=== PATIENT | male | born 1955 | race Two or more races ===

== ENCOUNTER 2017-11-04 07:42 | Inpatient (IN) | payer OTHER ==
[~2017-11-04] VITALS: Ht 154.9 cm; Wt 106.7 kg
[~2017-11-04 07:42] MED LIST: ASPI-496 PO; LATA2.5D3 EACHEYE; OXYC-307 PO; SERT100T5 PO; SIMV40TA3 PO; TRAZ50TA18 PO
[2017-11-04] MEDS ORDERED: LACTATED RINGERS 1,000 ML IV SCH (07:59)
[2017-11-04] MEDS ORDERED: OxyconTIN ER 20 MG TAB.ER PO ONE (11:00)
[2017-11-04] MEDS ORDERED: ACETAMINOPHEN 500 MG TABLET PO ONE (11:00)
[2017-11-04] MEDS ORDERED: GABAPENTIN 300 MG CAPSULE PO ONE (11:00)
[2017-11-04] MEDS ORDERED: MIDAZOLAM 1 MG/ML, 2ML ONE (11:02)
[2017-11-04] MEDS ORDERED: FENTANYL PF 250 MCG/5ML ONE ×3 (11:03→16:28)
[2017-11-04] MEDS ORDERED: BUPIVACAINE 0.25% ONE (11:22)
[2017-11-04] MEDS ORDERED: EPINEPHRINE 1 MG/ML, 1ML ONE (11:22)
[2017-11-04] MEDS ORDERED: PROPOFOL 10 MG/ML, 20ML ONE (11:27)
[2017-11-04] MEDS ORDERED: ONDANSETRON 2MG/ML, 2ML ONE (11:27)
[2017-11-04] MEDS ORDERED: PHENYLEPHRINE 10 MG/ML ONE (11:27)
[2017-11-04] MEDS ORDERED: DEXAMETHASONE 4 MG/ML, 1ML ONE (11:27)
[2017-11-04] MEDS ORDERED: CEFOTETAN 2 GM ONE (11:27)
[2017-11-04] MEDS ORDERED: ROCURONIUM 10 MG/ML,10ML ONE (11:27)
[2017-11-04] MEDS ORDERED: EPHEDRINE 50 MG/ML, 1ML ONE (11:27)
[2017-11-04] MEDS ORDERED: MEPERIDINE/PF 25MG/0.5ML IVPush PRN (12:30)
[2017-11-04] MEDS ORDERED: LABETALOL 5MG/ML, 20ML IV PRN (12:30)
[2017-11-04] MEDS ORDERED: PROMETHAZINE 25 MG/ML, 1ML IV PRN (12:30)
[2017-11-04] MEDS ORDERED: HALOPERIDOL 5 MG/ML IV PRN (12:30)
[2017-11-04] MEDS ORDERED: hydrALAzine 20 MG/ML, 1ML IV PRN (12:30)
[2017-11-04] MEDS ORDERED: ALBUTEROL SULFATE 2.5 MG/3 ML NPPB PRN (12:30)
[2017-11-04] MEDS ORDERED: OXYcodone 5 MG/5 ML ORAL.SOL UDC PO PRN (12:30)
[2017-11-04] MEDS ORDERED: ACETAMINOPHEN 325 MG TABLET PO PRN ×2 (12:30→22:30)
[2017-11-04] MEDS ORDERED: LORazepam 2 MG/ML, 1ML IVPush PRN (12:30)
[2017-11-04] MEDS ORDERED: SUGAMMADEX 200 MG/2 ML IVPush ONE ×2 (17:15→17:30)
[2017-11-04] MEDS ORDERED: OXYcodone 5 MG/5 ML ORAL.SOL UDC ONE (17:56)
[2017-11-04] MEDS ORDERED: FENTANYL PF 100 MCG/2ML ONE (17:56)
[2017-11-04] MEDS: FENTANYL PF 100 MCG/2ML IV PRN ×3 (18:02→18:36)
[2017-11-04] MEDS ORDERED: HYDROmorphone 2 MG/ML, 1ML ONE (18:14)
[2017-11-04] MEDS: HYDROmorphone 1 MG/ML, 1ML IV PRN ×4 (18:16→19:00)
[2017-11-04] MEDS ORDERED: MEPERIDINE/PF 50 MG/ML ONE (19:05)
[2017-11-04] MEDS: LATANOPROST OPHTH 0.005%, 2.5ML EACHEYE SCH (21:00)
[2017-11-04] MEDS: SIMVASTATIN 40 MG TABLET PO SCH (21:00)
[2017-11-04] MEDS: TRAZODONE 100MG TABLET PO SCH (21:00)
[2017-11-04] MEDS ORDERED: morphine SULFATE 10 MG/ML, 1ML IV PRN (22:30)
[2017-11-04] MEDS ORDERED: DIPHENHYDRAMINE 50 MG/ML, 1ML IV PRN (22:30)
[2017-11-04] MEDS ORDERED: KETOROLAC 30 MG/1 ML IV PRN (22:30)
[2017-11-04] MEDS ORDERED: ACETAMINOPHEN 650 MG SUPP PR PRN (22:30)
[2017-11-04] MEDS ORDERED: DIPHENHYDRAMINE 25 MG CAPSULE PO PRN (22:30)
[2017-11-04] MEDS ORDERED: ONDANSETRON 2MG/ML, 2ML IV PRN (22:30)
[2017-11-04] MEDS ORDERED: LORazepam 1MG TABLET PO PRN (23:00)
[2017-11-04] MEDS ORDERED: LORazepam 2 MG/ML, 1ML IV PRN (23:00)
[2017-11-04] MEDS: CEFOTETAN PMX 2GM/50ML 50 ML IVPB SCH (23:54)
[2017-11-05 00:58] VITALS: BP 114/71
[2017-11-05] MEDS ORDERED: OMEPRAZOLE 20 MG CAPSULE.DR ONE (01:15)
[2017-11-05] MEDS ORDERED: OMEPRAZOLE 20 MG CAPSULE.DR PO ONE (01:30)
[2017-11-05] MEDS: LACTATED RINGERS 1,000 ML IV SCH ×3 (03:40→22:58)
[2017-11-05 04:18] VITALS: BP 126/74
[2017-11-05 06:01] LABS: MEAN CORPUSCULAR HEMOGLOBIN 30.3 pg (27.5-34.5); MEAN CORPUSCULAR VOLUME 89.2 fL (81-97); MEAN PLATELET VOLUME 7.2 fL (7.4-10.4); PLATELET COUNT 196 x10^3/uL (130-400); RED BLOOD COUNT 4.67 x10^6/uL (4.38-5.82); RED CELL DISTRIBUTION WIDTH 15.3 % (9.4-14.8)
[2017-11-05 06:10] LABS: ALBUMIN 2.9 g/dL (3.4-5.0); ANION GAP 6 mmol/L (5-15); CALCIUM 7.7 mg/dL (8.5-10.1); CHLORIDE 105 mmol/L (98-107); CREATININE 1.48 mg/dL (0.7-1.3)
[2017-11-05 06:32] LABS: BASOPHILS # (AUTO) 0.02 x10^3/uL (0-0.1); BASOPHILS % (AUTO) 0 % (0-1); EOSINOPHILS % (AUTO) 0 % (1-7); LYMPHOCYTES # (AUTO) 0.95 x10^3/uL (1-3.4); LYMPHOCYTES % (AUTO) 6 % (22-44); MD SCAN; MONOCYTES # (AUTO) 1.79 x10^3/uL (0.2-0.8); MONOCYTES % (AUTO) 12 % (2-9); NEUTROPHILS # (AUTO) 12.92 x10^3/uL (1.8-6.8); NEUTROPHILS % (AUTO) 82 % (42-75)
[2017-11-05 07:21] VITALS: BP 130/83
[2017-11-05] MEDS: ASPIRIN 81 MG TABLET EC PO SCH (07:39)
[2017-11-05] MEDS ORDERED: LACTATED RINGERS 1,000 ML IVBOLUS ONE (08:00)
[2017-11-05] MEDS: SERTRALINE 100MG TABLET PO SCH (08:46)
[2017-11-05] MEDS: ENOXAPARIN 40 MG/0.4 ML SQ SCH (08:46)
[2017-11-05] MEDS: CALCIUM CARBONATE 500 MG TAB.CHEW PO PRN (08:46)
[2017-11-05] MEDS: OMEPRAZOLE 20 MG CAPSULE.DR PO SCH ×2 (08:46→20:35)
[2017-11-05] MEDS: CEFOTETAN PMX 2GM/50ML 50 ML IVPB SCH (11:07)
[2017-11-05 14:15] VITALS: BP 122/84
[2017-11-05 20:30] VITALS: BP 125/78
[2017-11-05] MEDS: SIMVASTATIN 40 MG TABLET PO SCH (20:35)
[2017-11-05] MEDS: TRAZODONE 100MG TABLET PO SCH (20:35)
[2017-11-05] MEDS: LATANOPROST OPHTH 0.005%, 2.5ML EACHEYE SCH (22:57)
[2017-11-06 00:45] VITALS: BP 131/84
[2017-11-06] MEDS: OXYcodone/APAP 10/325MG TABLET PO PRN ×5 (01:45→20:02)
[2017-11-06] MEDS: ASPIRIN 81 MG TABLET EC PO SCH (06:16)
[2017-11-06 07:03] LABS: MEAN CORPUSCULAR HEMOGLOBIN 30.8 pg (27.5-34.5); MEAN CORPUSCULAR HGB CONC 34.1 g/dL (33.2-36.2); MEAN CORPUSCULAR VOLUME 90.1 fL (81-97); MEAN PLATELET VOLUME 7.5 fL (7.4-10.4); PLATELET COUNT 191 x10^3/uL (130-400); RED BLOOD COUNT 3.45 x10^6/uL (4.38-5.82); RED CELL DISTRIBUTION WIDTH 15.7 % (9.4-14.8)
[2017-11-06 07:09] LABS: ANION GAP 4 mmol/L (5-15); CALCIUM 8.5 mg/dL (8.5-10.1); CHLORIDE 103 mmol/L (98-107); CREATININE 1.01 mg/dL (0.7-1.3)
[2017-11-06 07:30] LABS: BASOPHILS % (AUTO) 0 % (0-1); EOSINOPHILS % (AUTO) 0 % (1-7); LYMPHOCYTES # (AUTO) 1.14 x10^3/uL (1-3.4); LYMPHOCYTES % (AUTO) 7 % (22-44); MD SCAN; MONOCYTES # (AUTO) 2.34 x10^3/uL (0.2-0.8); MONOCYTES % (AUTO) 14 % (2-9); NEUTROPHILS # (AUTO) 13.89 x10^3/uL (1.8-6.8); NEUTROPHILS % (AUTO) 80 % (42-75)
[2017-11-06 07:36] VITALS: BP 146/82
[2017-11-06] MEDS: OMEPRAZOLE 20 MG CAPSULE.DR PO SCH ×2 (09:06→20:02)
[2017-11-06] MEDS: SERTRALINE 100MG TABLET PO SCH (09:06)
[2017-11-06] MEDS: ENOXAPARIN 40 MG/0.4 ML SQ SCH (09:06)
[2017-11-06] MEDS: LACTATED RINGERS 1,000 ML IV SCH ×3 (11:32→19:57)
[2017-11-06 14:12] VITALS: BP 131/78
[2017-11-06 20:39] VITALS: BP 126/77
[2017-11-06] MEDS: TRAZODONE 100MG TABLET PO SCH (23:45)
[2017-11-06] MEDS: SIMVASTATIN 40 MG TABLET PO SCH (23:45)
[2017-11-06] MEDS: LATANOPROST OPHTH 0.005%, 2.5ML EACHEYE SCH (23:45)
[2017-11-07] MEDS: OXYcodone/APAP 10/325MG TABLET PO PRN ×5 (00:11→19:13)
[2017-11-07 02:55] VITALS: BP 153/84
[2017-11-07] MEDS: LACTATED RINGERS 1,000 ML IV SCH ×3 (04:18→18:46)
[2017-11-07] MEDS: ASPIRIN 81 MG TABLET EC PO SCH (05:36)
[2017-11-07 05:41] LABS: BASOPHILS # (AUTO) 0.02 x10^3/uL (0-0.1); BASOPHILS % (AUTO) 0 % (0-1); EOSINOPHILS # (AUTO) 0.17 x10^3/uL (0-0.4); EOSINOPHILS % (AUTO) 2 % (1-7); LYMPHOCYTES # (AUTO) 1.06 x10^3/uL (1-3.4); LYMPHOCYTES % (AUTO) 9 % (22-44); MD NO; MEAN CORPUSCULAR HEMOGLOBIN 30.2 pg (27.5-34.5); MEAN CORPUSCULAR HGB CONC 33.8 g/dL (33.2-36.2); MEAN CORPUSCULAR VOLUME 89.5 fL (81-97); MEAN PLATELET VOLUME 7.3 fL (7.4-10.4); MONOCYTES # (AUTO) 1.18 x10^3/uL (0.2-0.8); MONOCYTES % (AUTO) 10 % (2-9); NEUTROPHILS # (AUTO) 9.56 x10^3/uL (1.8-6.8); NEUTROPHILS % (AUTO) 80 % (42-75); PLATELET COUNT 171 x10^3/uL (130-400); RED CELL DISTRIBUTION WIDTH 15.1 % (9.4-14.8)
[2017-11-07 05:44] LABS: ANION GAP 5 mmol/L (5-15); CALCIUM 8.6 mg/dL (8.5-10.1); CHLORIDE 104 mmol/L (98-107); CREATININE 0.68 mg/dL (0.7-1.3)
[2017-11-07 05:53] LABS: TROPONIN I 0.207 ng/mL (0.000-0.045)
[2017-11-07 07:20] VITALS: BP 114/66
[2017-11-07] MEDS: ENOXAPARIN 40 MG/0.4 ML SQ SCH (09:04)
[2017-11-07] MEDS: SERTRALINE 100MG TABLET PO SCH (09:05)
[2017-11-07] MEDS: OMEPRAZOLE 20 MG CAPSULE.DR PO SCH ×2 (09:05→20:33)
[2017-11-07] MEDS: METOPROLOL TARTRATE 25 MG TABLET PO SCH ×2 (09:11→18:32)
[2017-11-07 12:27] VITALS: BP 104/65
[2017-11-07 13:14] LABS: TROPONIN I 0.206 ng/mL (0.000-0.045)
[2017-11-07 18:32] VITALS: BP 109/68
[2017-11-07 19:49] VITALS: BP 120/56
[2017-11-07] MEDS ORDERED: OMNIPAQUE 350 MG/ML, 100ML BOTTLE ONE (20:00)
[2017-11-07 20:31] LABS: TROPONIN I 0.181 ng/mL (0.000-0.045)
[2017-11-07] MEDS: SIMVASTATIN 40 MG TABLET PO SCH (20:33)
[2017-11-07 20:39] LABS: INTERNATIONAL NORMALIZED RATIO 0.99 (0.93-1.1); PROTHROMBIN TIME 10.2 Seconds (9.6-11.5)
[2017-11-07] MEDS: LATANOPROST OPHTH 0.005%, 2.5ML EACHEYE SCH (21:00)
[2017-11-07] MEDS: TRAZODONE 100MG TABLET PO SCH (23:28)
[2017-11-08 00:51] VITALS: BP 104/63
[2017-11-08 01:54] LABS: MICROSCOPIC NOT IND
[2017-11-08 01:57] LABS: CULTURE INDICATED? NO
[2017-11-08] MEDS: ASPIRIN 81 MG TABLET EC PO SCH (05:19)
[2017-11-08] MEDS: METOPROLOL TARTRATE 25 MG TABLET PO SCH ×2 (05:19→18:18)
[2017-11-08] MEDS: LACTATED RINGERS 1,000 ML IV SCH ×2 (05:21→16:44)
[2017-11-08 05:24] VITALS: BP 108/71
[2017-11-08 06:07] LABS: BASOPHILS # (AUTO) 0.04 x10^3/uL (0-0.1); BASOPHILS % (AUTO) 1 % (0-1); EOSINOPHILS # (AUTO) 0.24 x10^3/uL (0-0.4); EOSINOPHILS % (AUTO) 3 % (1-7); LYMPHOCYTES # (AUTO) 1.07 x10^3/uL (1-3.4); LYMPHOCYTES % (AUTO) 14 % (22-44); MD NO; MEAN CORPUSCULAR HEMOGLOBIN 30.5 pg (27.5-34.5); MEAN CORPUSCULAR HGB CONC 34.1 g/dL (33.2-36.2); MEAN CORPUSCULAR VOLUME 89.4 fL (81-97); MEAN PLATELET VOLUME 7.5 fL (7.4-10.4); MONOCYTES # (AUTO) 0.94 x10^3/uL (0.2-0.8); MONOCYTES % (AUTO) 12 % (2-9); NEUTROPHILS # (AUTO) 5.47 x10^3/uL (1.8-6.8); NEUTROPHILS % (AUTO) 71 % (42-75); PLATELET COUNT 181 x10^3/uL (130-400); RED BLOOD COUNT 2.66 x10^6/uL (4.38-5.82); RED CELL DISTRIBUTION WIDTH 15.2 % (9.4-14.8)
[2017-11-08 06:20] LABS: CHLORIDE 106 mmol/L (98-107)
[2017-11-08 06:37] LABS: ALANINE AMINOTRANSFERASE 21 U/L (12-78); ALBUMIN 2.2 g/dL (3.4-5.0); ALKALINE PHOSPHATASE 75 U/L (45-117); ANION GAP 3 mmol/L (5-15); BILIRUBIN,TOTAL 0.4 mg/dL (0.2-1.0); CALCIUM 7.5 mg/dL (8.5-10.1); CHOL/HDL RATIO 3.8; CHOLESTEROL, TOTAL 79 mg/dL (140-239); CREATININE 0.55 mg/dL (0.7-1.3); HDL CHOL % 27 % (26-37); HDL CHOLESTEROL (DIRECT) 21 mg/dL (40-60); LDL CHOLESTEROL,CALCULATED 21 mg/dL (54-169); TOTAL PROTEIN 5.4 g/dL (6.4-8.2); TRIGLYCERIDES 186 mg/dL (50-200); VLDL CHOLESTEROL 37 mg/dL (0-25)
[2017-11-08] MEDS ORDERED: REGADENOSON 0.4 MG/5 ML SYRINGE ONE (08:09)
[2017-11-08 08:17] VITALS: BP 103/63
[2017-11-08] MEDS: SERTRALINE 100MG TABLET PO SCH (10:43)
[2017-11-08] MEDS: OMEPRAZOLE 20 MG CAPSULE.DR PO SCH ×2 (10:43→21:20)
[2017-11-08] MEDS: OXYcodone/APAP 10/325MG TABLET PO PRN (10:44)
[2017-11-08 15:00] VITALS: BP 108/56
[2017-11-08 19:00] VITALS: BP 121/66
[2017-11-08] MEDS: TRAZODONE 100MG TABLET PO SCH (21:20)
[2017-11-08] MEDS: SIMVASTATIN 40 MG TABLET PO SCH (21:20)
[2017-11-08] MEDS: LATANOPROST OPHTH 0.005%, 2.5ML EACHEYE SCH (22:17)
[2017-11-09 01:54] VITALS: BP 111/68
[2017-11-09 04:25] LABS: BASOPHILS # (AUTO) 0.03 x10^3/uL (0-0.1); BASOPHILS % (AUTO) 0 % (0-1); EOSINOPHILS # (AUTO) 0.25 x10^3/uL (0-0.4); EOSINOPHILS % (AUTO) 3 % (1-7); LYMPHOCYTES # (AUTO) 1.19 x10^3/uL (1-3.4); LYMPHOCYTES % (AUTO) 15 % (22-44); MD NO; MEAN CORPUSCULAR HEMOGLOBIN 30.4 pg (27.5-34.5); MEAN CORPUSCULAR HGB CONC 33.6 g/dL (33.2-36.2); MEAN CORPUSCULAR VOLUME 90.5 fL (81-97); MEAN PLATELET VOLUME 7.1 fL (7.4-10.4); MONOCYTES # (AUTO) 0.99 x10^3/uL (0.2-0.8); MONOCYTES % (AUTO) 13 % (2-9); NEUTROPHILS # (AUTO) 5.46 x10^3/uL (1.8-6.8); NEUTROPHILS % (AUTO) 69 % (42-75); PLATELET COUNT 200 x10^3/uL (130-400); RED BLOOD COUNT 2.73 x10^6/uL (4.38-5.82); RED CELL DISTRIBUTION WIDTH 15.1 % (9.4-14.8)
[2017-11-09 04:32] LABS: ALANINE AMINOTRANSFERASE 24 U/L (12-78); ALBUMIN 2.2 g/dL (3.4-5.0); ANION GAP 4 mmol/L (5-15); CALCIUM 7.3 mg/dL (8.5-10.1); CHLORIDE 107 mmol/L (98-107); CREATININE 0.55 mg/dL (0.7-1.3)
[2017-11-09 04:34] LABS: ALKALINE PHOSPHATASE 84 U/L (45-117); BILIRUBIN,TOTAL 0.3 mg/dL (0.2-1.0); TOTAL PROTEIN 5.4 g/dL (6.4-8.2)
[2017-11-09] MEDS: ASPIRIN 81 MG TABLET EC PO SCH (06:00)
[2017-11-09] MEDS: METOPROLOL TARTRATE 25 MG TABLET PO SCH ×2 (06:38→17:21)
[2017-11-09 06:40] VITALS: BP 118/74
[2017-11-09] MEDS: CALCIUM CARBONATE 500 MG TAB.CHEW PO PRN ×2 (06:50→17:29)
[2017-11-09 07:09] VITALS: BP 103/60
[2017-11-09] MEDS: OMEPRAZOLE 20 MG CAPSULE.DR PO SCH ×2 (08:04→21:58)
[2017-11-09] MEDS: SERTRALINE 100MG TABLET PO SCH (08:04)
[2017-11-09] MEDS: OXYcodone/APAP 10/325MG TABLET PO PRN ×3 (08:09→19:55)
[2017-11-09] MEDS ORDERED: MAALOX/HYOSCYAMINE/LIDOCAINE 45 ML BTL PO PRN (10:00)
[2017-11-09 15:22] VITALS: BP 121/75
[2017-11-09] MEDS: LACTATED RINGERS 1,000 ML IV SCH (16:47)
[2017-11-09 19:00] VITALS: BP 148/61
[2017-11-09] MEDS: SIMVASTATIN 40 MG TABLET PO SCH (21:57)
[2017-11-09] MEDS: TRAZODONE 100MG TABLET PO SCH (21:57)
[2017-11-09] MEDS: LATANOPROST OPHTH 0.005%, 2.5ML EACHEYE SCH (21:58)
[2017-11-10] MEDS: OXYcodone/APAP 10/325MG TABLET PO PRN ×5 (00:10→20:24)
[2017-11-10 02:40] VITALS: BP 131/68
[2017-11-10 05:35] LABS: ANION GAP 5 mmol/L (5-15); CALCIUM 7.8 mg/dL (8.5-10.1); CHLORIDE 107 mmol/L (98-107)
[2017-11-10 05:36] LABS: CREATININE 0.61 mg/dL (0.7-1.3)
[2017-11-10 05:37] LABS: BASOPHILS # (AUTO) 0.05 x10^3/uL (0-0.1); BASOPHILS % (AUTO) 1 % (0-1); EOSINOPHILS # (AUTO) 0.23 x10^3/uL (0-0.4); EOSINOPHILS % (AUTO) 2 % (1-7); LYMPHOCYTES # (AUTO) 1.35 x10^3/uL (1-3.4); LYMPHOCYTES % (AUTO) 14 % (22-44); MD NO; MEAN CORPUSCULAR HEMOGLOBIN 30.4 pg (27.5-34.5); MEAN CORPUSCULAR HGB CONC 33.9 g/dL (33.2-36.2); MEAN CORPUSCULAR VOLUME 89.7 fL (81-97); MEAN PLATELET VOLUME 7.4 fL (7.4-10.4); MONOCYTES # (AUTO) 1.16 x10^3/uL (0.2-0.8); MONOCYTES % (AUTO) 12 % (2-9); NEUTROPHILS % (AUTO) 72 % (42-75); PLATELET COUNT 210 x10^3/uL (130-400); RED BLOOD COUNT 2.78 x10^6/uL (4.38-5.82); RED CELL DISTRIBUTION WIDTH 15.2 % (9.4-14.8)
[2017-11-10 06:44] VITALS: BP 97/60
[2017-11-10] MEDS: METOPROLOL TARTRATE 25 MG TABLET PO SCH ×2 (06:51→17:51)
[2017-11-10] MEDS: ASPIRIN 81 MG TABLET EC PO SCH (06:51)
[2017-11-10 06:54] VITALS: BP 119/77
[2017-11-10] MEDS ORDERED: MAGNESIUM SULFATE PMX 2GM/50ML 50 ML IV ONE (08:30)
[2017-11-10] MEDS: MAGNESIUM OXIDE 400 MG TABLET PO SCH ×2 (09:29→20:38)
[2017-11-10] MEDS: SERTRALINE 100MG TABLET PO SCH (09:29)
[2017-11-10] MEDS: OMEPRAZOLE 20 MG CAPSULE.DR PO SCH ×2 (09:29→20:37)
[2017-11-10] MEDS: CALCIUM CARBONATE 500 MG TAB.CHEW PO PRN (11:17)
[2017-11-10 13:19] VITALS: BP 100/61
[2017-11-10] MEDS: LACTATED RINGERS 1,000 ML IV SCH (15:00)
[2017-11-10 17:50] VITALS: BP 119/78
[2017-11-10] MEDS ORDERED: MAALOX/HYOSCYAMINE/LIDOCAINE 45 ML BTL PO PRN (19:00)
[2017-11-10 19:10] VITALS: BP 119/63
[2017-11-10] MEDS: TRAZODONE 100MG TABLET PO SCH (20:37)
[2017-11-10] MEDS: SIMVASTATIN 40 MG TABLET PO SCH (20:37)
[2017-11-10] MEDS: LATANOPROST OPHTH 0.005%, 2.5ML EACHEYE SCH (20:38)
[2017-11-11] MEDS: OXYcodone/APAP 10/325MG TABLET PO PRN ×4 (00:23→12:54)
[2017-11-11 02:06] VITALS: BP 132/71
[2017-11-11] MEDS: ASPIRIN 81 MG TABLET EC PO SCH (05:53)
[2017-11-11] MEDS: METOPROLOL TARTRATE 25 MG TABLET PO SCH (05:53)
[2017-11-11 07:51] VITALS: BP 93/59
[2017-11-11] MEDS: SERTRALINE 100MG TABLET PO SCH (08:50)
[2017-11-11] MEDS: OMEPRAZOLE 20 MG CAPSULE.DR PO SCH (08:50)
[2017-11-11] MEDS: MAGNESIUM OXIDE 400 MG TABLET PO SCH (08:50)
[2017-11-11] MEDS ORDERED: POLY17PO5 PO (13:04)
[2017-11-11 14:04] VITALS: BP 133/70
== END 2017-11-11 15:23 | disposition home or self-care (01) | DRG 853 ==
LOC: ORIP 07:42 → EDSTATUS 10:00 → 4NOR 20:15 → 5SO 11-07 10:33 → 4NOR 11-08 18:28 → DCLOUNGE 11-11 15:10
PROVIDERS: ADMIT Colon & Rectal Surgery; ATTEND Colon & Rectal Surgery
PROC: 0DNW0ZZ Release Peritoneum, Open Approach (ICD-10-PCS; 2017-11-04)
PROC: 0DBP0ZZ Excision of Rectum, Open Approach (ICD-10-PCS; 2017-11-04)
PROC: 0WUF0JZ Supplement Abdominal Wall with Synthetic Substitute, Open Approach (ICD-10-PCS; 2017-11-04)
PROC: 0D1M0Z4 Bypass Descending Colon to Cutaneous, Open Approach (ICD-10-PCS; 2017-11-04)
PROC: 0WBF0ZZ Excision of Abdominal Wall, Open Approach (ICD-10-PCS; 2017-11-04)
PROC: 0HX7XZZ Transfer Abdomen Skin, External Approach (ICD-10-PCS; principal; 2017-11-04 11:00)
PROC: 0DB80ZZ Excision of Small Intestine, Open Approach (ICD-10-PCS; 2017-11-04 11:00)
DX: A41.9 Sepsis, unspecified organism (principal); N17.0 Acute kidney failure with tubular necrosis; K65.1 Peritoneal abscess; J96.01 Acute respiratory failure with hypoxia; K63.2 Fistula of intestine; K43.9 Ventral hernia without obstruction or gangrene; E66.01 Morbid (severe) obesity due to excess calories; E78.00 Pure hypercholesterolemia, unspecified; G89.4 Chronic pain syndrome; E78.5 Hyperlipidemia, unspecified; I10 Essential (primary) hypertension; K21.9 Gastro-esophageal reflux disease without esophagitis; F32.9 Major depressive disorder, single episode, unspecified; K66.0 Peritoneal adhesions (postprocedural) (postinfection); E65 Localized adiposity; Y83.2 Surgical operation with anastomosis, bypass or graft as the cause of abnormal reaction of the patient, or of later complication, without mention of misadventure at the time of the procedure; Z79.82 Long term (current) use of aspirin; Y92.89 Other specified places as the place of occurrence of the external cause
CPT/HCPCS: 36415; 71045; 71275; 74018; 78452; 80048; 80053; 80061; 81003; 82040; 83735; 84484; 85025; 85610; 85730; 86850; 86900; 88304; 88305; 88307; 93005; 93017; 93306; C1729; J0171; J1100; J1170; J1650; J2175; J2250; J2270; J2405; J2704; J2785; J3010; J3490; Q9967; A9502; C1781; C9898; J2370; J3475; J7120; S0074

== ENCOUNTER 2017-12-21 10:21 | Day surgery (SDC) | payer OTHER ==
[~2017-12-21] VITALS: Ht 154.9 cm; Wt 103.4 kg
[~2017-12-21 10:21] MED LIST changes: +POLY17PO5 PO; +TRAZ-136 PO; -TRAZ50TA18 PO
[2017-12-21 11:12] VITALS: BP 138/86
[2017-12-21] MEDS ORDERED: SODIUM CHLORIDE 0.9% 1,000 ML IV SCH (11:16)
[2017-12-21] MEDS ORDERED: LIDOCAINE-MPF 2%, 2ML ONE ×2 (11:51→12:54)
[2017-12-21] MEDS ORDERED: OMNIPAQUE 350 MG/ML, 100ML BOTTLE ONE (12:17)
[2017-12-21] MEDS ORDERED: MIDAZOLAM 1 MG/ML, 5ML ONE ×2 (12:29)
[2017-12-21] MEDS ORDERED: FLUMAZENIL 0.1 MG/1 ML, 5ML ONE (12:29)
[2017-12-21] MEDS ORDERED: NALOXONE 1 MG/ML, 2ML ONE (12:29)
[2017-12-21] MEDS ORDERED: FENTANYL PF 100 MCG/2ML ONE (12:29)
== END 2017-12-21 15:00 ==
LOC: OUT 10:21
PROVIDERS: ATTEND Colon & Rectal Surgery
DX: K80.20 Calculus of gallbladder without cholecystitis without obstruction (principal); F41.9 Anxiety disorder, unspecified; F32.9 Major depressive disorder, single episode, unspecified; K21.9 Gastro-esophageal reflux disease without esophagitis; E78.00 Pure hypercholesterolemia, unspecified; I10 Essential (primary) hypertension; E66.9 Obesity, unspecified; Z98.890 Other specified postprocedural states; Z87.891 Personal history of nicotine dependence; Z79.82 Long term (current) use of aspirin; Z90.49 Acquired absence of other specified parts of digestive tract; Z93.3 Colostomy status
CPT/HCPCS: 49405; 74160; 75989; 87070; 87075; 87205; 99156; C1729; C1769; J2250; J3010; J3490; J7030; Q9967; 99157; J2310

== ENCOUNTER 2018-02-10 08:27 | Day surgery (SDC) | payer OTHER ==
[~2018-02-10] VITALS: Ht 154.9 cm; Wt 103.8 kg
[2018-02-10 08:55] VITALS: BP 142/80
[2018-02-10] MEDS ORDERED: SODIUM CHLORIDE 0.9% 1,000 ML IV SCH ×2 (09:00→09:34)
[2018-02-10] MEDS ORDERED: MIDAZOLAM 1 MG/ML, 5ML ONE (10:05)
[2018-02-10] MEDS ORDERED: FENTANYL PF 100 MCG/2ML ONE ×2 (10:05)
[2018-02-10] MEDS ORDERED: NALOXONE 1 MG/ML, 2ML ONE (10:06)
[2018-02-10] MEDS ORDERED: FLUMAZENIL 0.1 MG/1 ML, 5ML ONE (10:06)
[2018-02-10] MEDS ORDERED: LIDOCAINE-MPF 2%, 2ML ONE (10:28)
== END 2018-02-10 12:06 | disposition home or self-care (01) ==
LOC: OUT 08:27
PROVIDERS: ATTEND Colon & Rectal Surgery
DX: L76.34 Postprocedural seroma of skin and subcutaneous tissue following other procedure (principal); I10 Essential (primary) hypertension; E78.00 Pure hypercholesterolemia, unspecified; F32.9 Major depressive disorder, single episode, unspecified; E66.01 Morbid (severe) obesity due to excess calories; G89.4 Chronic pain syndrome; K21.9 Gastro-esophageal reflux disease without esophagitis; F19.11 Other psychoactive substance abuse, in remission; Z98.890 Other specified postprocedural states; Z87.891 Personal history of nicotine dependence
CPT/HCPCS: 10030; 99156; 99157; J2250; J3010; J3490; J7030; 75989; J2310